=== PATIENT | female | born 1995 | race Caucasian/White ===

== ENCOUNTER 2017-10-13 06:20 | Emergency (ER) | payer SELFPAY ==
[~2017-10-13] VITALS: Ht 152.4 cm; Wt 61.3 kg
[~2017-10-13 06:20] MED LIST: IBUP-1222 PO; PNV91TAB3 PO
[2017-10-13] MEDS ORDERED: ONDANSETRON ODT 4 MG ONE (06:51)
[2017-10-13] MEDS ORDERED: KETOROLAC 30 MG/1 ML ONE (06:51)
[2017-10-13] MEDS ORDERED: KETOROLAC 30 MG/1 ML IM ONE (07:00)
[2017-10-13] MEDS ORDERED: ONDANSETRON ODT 4 MG PO ONE (07:00)
[2017-10-13 07:12] LABS: BASOPHILS # (AUTO) 0.02 x10^3/uL (0-0.1); BASOPHILS % (AUTO) 0 % (0-1); EOSINOPHILS # (AUTO) 0.13 x10^3/uL (0-0.4); EOSINOPHILS % (AUTO) 2 % (1-7); LYMPHOCYTES # (AUTO) 1.75 x10^3/uL (1-3.4); LYMPHOCYTES % (AUTO) 20 % (22-44); MD NO; MEAN CORPUSCULAR HEMOGLOBIN 28.8 pg (27.0-34.8); MEAN CORPUSCULAR HGB CONC 33.4 g/dL (32.4-35.8); MEAN CORPUSCULAR VOLUME 86.3 fL (80-100); MEAN PLATELET VOLUME 9.7 fL (7.4-10.4); MONOCYTES # (AUTO) 0.64 x10^3/uL (0.2-0.8); MONOCYTES % (AUTO) 8 % (2-9); NEUTROPHILS # (AUTO) 6.04 x10^3/uL (1.8-6.8); NEUTROPHILS % (AUTO) 70 % (42-75); PLATELET COUNT 221 x10^3/uL (130-400); RED BLOOD COUNT 4.93 x10^6/uL (3.82-5.3); RED CELL DISTRIBUTION WIDTH 12.6 % (9.6-15.2)
[2017-10-13 07:15] LABS: MICROSCOPIC INDICATED
[2017-10-13 07:21] LABS: ALANINE AMINOTRANSFERASE 23 U/L (12-78); ALBUMIN 3.8 g/dL (3.4-5.0); ANION GAP 9 mmol/L (5-15); CALCIUM 8.6 mg/dL (8.5-10.1); CHLORIDE 110 mmol/L (98-107)
[2017-10-13 07:26] LABS: ALKALINE PHOSPHATASE 112 U/L (45-117); BILIRUBIN,TOTAL 0.7 mg/dL (0.2-1.0); CREATININE 0.84 mg/dL (0.55-1.02); TOTAL PROTEIN 7.3 g/dL (6.4-8.2)
[2017-10-13 07:45] VITALS: BP 102/63
[2017-10-13 07:58] LABS: CULTURE INDICATED? YES
== END 2017-10-13 08:29 | disposition home or self-care (01) ==
LOC: ED 08:23
DX: N30.00 Acute cystitis without hematuria (principal); F17.200 Nicotine dependence, unspecified, uncomplicated
CPT/HCPCS: 36415; 80053; 81001; 84703; 85025; 87086; 87147; 96372; 99284; J1885; Q0162

== ENCOUNTER 2018-11-26 01:09 | Emergency (ER) | payer SELFPAY ==
[~2018-11-26] VITALS: Ht 152.4 cm; Wt 61.3 kg
[2018-11-26 01:11] VITALS: BP 112/76
--- NOTE | 2018-11-26 01:24 | NUR ---
FIRST CONTACT WITH PT. ERP AT BEDSIDE FOR INITIAL ASSESSMENT. PT REPORTS N/V/D X LAST NIGHT AFTER EATING TACO MEDINA. GENERALIZED ABD 'CRAMPING', ABD NON-TENDER TO PALPATION. DENIES CP/SOB/FEVER/URINARY SYMPTOMS/VAGINAL BLEEDING OR DC. FAMILY AT BEDSIDE.
[2018-11-26] MEDS ORDERED: ONDANSETRON ODT 4 MG PO ONE (01:30)
[2018-11-26] MEDS ORDERED: ONDANSETRON ODT 4 MG ONE (01:31)
[2018-11-26 01:42] LABS: BASOPHILS # (AUTO) 0.02 x10^3/uL (0-0.1); BASOPHILS % (AUTO) 0 % (0-1); EOSINOPHILS # (AUTO) 0.15 x10^3/uL (0-0.4); EOSINOPHILS % (AUTO) 2 % (1-7); LYMPHOCYTES # (AUTO) 2.04 x10^3/uL (1-3.4); LYMPHOCYTES % (AUTO) 27 % (22-44); MD NO; MEAN CORPUSCULAR HEMOGLOBIN 29.2 pg (27.0-34.8); MEAN CORPUSCULAR HGB CONC 33.2 g/dL (32.4-35.8); MEAN CORPUSCULAR VOLUME 87.9 fL (80-100); MEAN PLATELET VOLUME 8.6 fL (7.4-10.4); MONOCYTES # (AUTO) 0.52 x10^3/uL (0.2-0.8); MONOCYTES % (AUTO) 7 % (2-9); NEUTROPHILS # (AUTO) 4.77 x10^3/uL (1.8-6.8); NEUTROPHILS % (AUTO) 64 % (42-75); PLATELET COUNT 248 x10^3/uL (130-400); RED BLOOD COUNT 4.53 x10^6/uL (3.82-5.3)
[2018-11-26 01:49] LABS: ALANINE AMINOTRANSFERASE 21 U/L (12-78); ALBUMIN 3.9 g/dL (3.4-5.0); ANION GAP 6 mmol/L (5-15); CALCIUM 8.4 mg/dL (8.5-10.1); CHLORIDE 110 mmol/L (98-107); CREATININE 0.75 mg/dL (0.55-1.02)
[2018-11-26 01:54] LABS: ALKALINE PHOSPHATASE 102 U/L (45-117); BILIRUBIN,TOTAL 0.5 mg/dL (0.2-1.0)
--- NOTE | 2018-11-26 02:30 | NUR ---
PT REPORTS IMPROVEMENT IN SYMPTOMS WITH MEDICATIONS.
--- NOTE | 2018-11-26 02:43 | NUR ---
DC EDUCATION PROVIDED, PT DEMONSTRATES UNDERSTANDING. PT AMBUALTED STEADILY TO DC WITH FAMILY AND RN
== END 2018-11-26 02:45 | disposition home or self-care (01) ==
LOC: ED 02:36
DX: A09 Infectious gastroenteritis and colitis, unspecified (principal); F17.200 Nicotine dependence, unspecified, uncomplicated
CPT/HCPCS: 36415; 80053; 83690; 84703; 85025; 99283; Q0162

== ENCOUNTER 2019-01-08 11:21 | Emergency (ER) | payer SELFPAY ==
[~2019-01-08] VITALS: Ht 152.4 cm; Wt 62.0 kg
[2019-01-08 13:11] VITALS: BP 104/44
== END 2019-01-08 13:52 | disposition home or self-care (01) ==
LOC: ED 13:22
DX: O26.891 Other specified pregnancy related conditions, first trimester (principal); Z3A.01 Less than 8 weeks gestation of pregnancy
CPT/HCPCS: 36415; 76815; 80048; 81001; 82040; 84702; 85025; 86901; 87086; 87147; 99284

== ENCOUNTER 2019-01-13 23:20 | Emergency (ER) | payer SELFPAY ==
[~2019-01-13] VITALS: Ht 152.4 cm; Wt 64.1 kg
--- NOTE | 2019-01-13 23:46 | NUR ---
PT IN US AT THIS TIME
--- NOTE | 2019-01-14 00:11 | NUR ---
URINE SAMPLE COLLECTED AND TO LAB
[2019-01-14 00:26] LABS: BASOPHILS # (AUTO) 0.02 x10^3/uL (0-0.1); BASOPHILS % (AUTO) 0 % (0-1); EOSINOPHILS # (AUTO) 0.13 x10^3/uL (0-0.4); EOSINOPHILS % (AUTO) 2 % (1-7); LYMPHOCYTES # (AUTO) 3.02 x10^3/uL (1-3.4); LYMPHOCYTES % (AUTO) 40 % (22-44); MD NO; MEAN CORPUSCULAR HEMOGLOBIN 29.2 pg (27.0-34.8); MEAN CORPUSCULAR HGB CONC 33.4 g/dL (32.4-35.8); MEAN CORPUSCULAR VOLUME 87.5 fL (80-100); MEAN PLATELET VOLUME 8.4 fL (7.4-10.4); MONOCYTES # (AUTO) 0.58 x10^3/uL (0.2-0.8); MONOCYTES % (AUTO) 8 % (2-9); NEUTROPHILS # (AUTO) 3.88 x10^3/uL (1.8-6.8); NEUTROPHILS % (AUTO) 51 % (42-75); PLATELET COUNT 244 x10^3/uL (130-400); RED BLOOD COUNT 4.37 x10^6/uL (3.82-5.3); RED CELL DISTRIBUTION WIDTH 12.9 % (9.6-15.2)
[2019-01-14 02:23] VITALS: BP 119/74
== END 2019-01-14 02:25 | disposition home or self-care (01) ==
LOC: ED 01-14 00:23
DX: N93.8 Other specified abnormal uterine and vaginal bleeding (principal); R10.2 Pelvic and perineal pain; F17.200 Nicotine dependence, unspecified, uncomplicated
CPT/HCPCS: 36415; 76830; 84702; 85025; 86901; 99284

== ENCOUNTER 2019-09-22 09:53 | Emergency (ER) | payer OTHER ==
[~2019-09-22] VITALS: Ht 152.4 cm; Wt 65.1 kg
--- NOTE | 2019-09-22 10:13 | NUR ---
Pt is 19 weeks and is unable to see her obgyn doctor due to gi symptoms and he/she would like her cleared for jensen prior to seeing. Pt reports she was asked to be tested by her obgyn. Pt has abd discomfort with some not fully loose stools but a little bit abnormal. Pt deneis any bleeding or cramping. Pt resting in room awaiting to see provider.
--- NOTE | 2019-09-22 10:52 | NUR ---
Provider to bedside.
[2019-09-22 11:23] LABS: BASOPHILS # (AUTO) 0.04 x10^3/uL (0-0.1); BASOPHILS % (AUTO) 0 % (0-1); EOSINOPHILS # (AUTO) 0.09 x10^3/uL (0-0.4); EOSINOPHILS % (AUTO) 1 % (1-7); LYMPHOCYTES # (AUTO) 1.81 x10^3/uL (1-3.4); LYMPHOCYTES % (AUTO) 17 % (22-44); MD NO; MEAN CORPUSCULAR HEMOGLOBIN 29.3 pg (27.0-34.8); MEAN CORPUSCULAR HGB CONC 33.7 g/dL (32.4-35.8); MEAN CORPUSCULAR VOLUME 86.9 fL (80-100); MONOCYTES # (AUTO) 0.49 x10^3/uL (0.2-0.8); MONOCYTES % (AUTO) 5 % (2-9); NEUTROPHILS # (AUTO) 8.16 x10^3/uL (1.8-6.8); NEUTROPHILS % (AUTO) 77 % (42-75); PLATELET COUNT 256 x10^3/uL (130-400); RED BLOOD COUNT 4.23 x10^6/uL (3.82-5.3); RED CELL DISTRIBUTION WIDTH 13.8 % (9.6-15.2)
[2019-09-22 11:29] LABS: RAPID INFLUENZA A Negative (Negative); RAPID INFLUENZA B Negative (Negative)
[2019-09-22 11:32] LABS: ALBUMIN 3.2 g/dL (3.4-5.0); ANION GAP 6 mmol/L (5-15); CALCIUM 8.7 mg/dL (8.5-10.1); CHLORIDE 110 mmol/L (98-107)
[2019-09-22 11:36] LABS: ALANINE AMINOTRANSFERASE 22 U/L (12-78); ALKALINE PHOSPHATASE 64 U/L (45-117); BILIRUBIN,TOTAL 0.2 mg/dL (0.2-1.0); CREATININE 0.52 mg/dL (0.55-1.02); TOTAL PROTEIN 6.9 g/dL (6.4-8.2)
--- NOTE | 2019-09-22 11:54 | NUR ---
Pt assisted to restromm. Able to ambulate without difficulty.
[2019-09-22 12:31] VITALS: BP 112/68
[2019-09-22 12:39] LABS: MICROSCOPIC NOT IND
[2019-09-22 12:40] LABS: CULTURE INDICATED? NO
--- NOTE | 2019-09-22 13:26 | NUR ---
Patient/Caregiver given discharge instructions and they have confirmed that they understand the instructions. Patient ambulatory with steady gait.
== END 2019-09-22 13:28 | disposition home or self-care (01) ==
LOC: ED 10:12
DX: O99.512 Diseases of the respiratory system complicating pregnancy, second trimester (principal); Z20.828 Contact with and (suspected) exposure to other viral communicable diseases; F17.200 Nicotine dependence, unspecified, uncomplicated; R19.7 Diarrhea, unspecified; Z3A.19 19 weeks gestation of pregnancy
CPT/HCPCS: 36415; 71045; 80053; 81003; 85025; 87400; 99284

== ENCOUNTER 2019-11-02 17:47 | Outpatient (CLI) | payer OTHER ==
[~2019-11-02] VITALS: Ht 152.4 cm; Wt 66.4 kg
[2019-11-02 18:43] LABS: MICROSCOPIC INDICATED
== END 2019-11-02 19:24 | disposition home or self-care (01) ==
LOC: LDOP 17:47
PROVIDERS: ATTEND Obstetrics & Gynecology
DX: O26.892 Other specified pregnancy related conditions, second trimester (principal); R10.9 Unspecified abdominal pain; Z3A.25 25 weeks gestation of pregnancy
CPT/HCPCS: 81001; 87086; 99211; G0463